=== PATIENT | female | born 1990 | race Caucasian/White ===

== ENCOUNTER 2022-01-05 00:03 | Emergency (ER) | payer OTHER | END 2022-01-05 01:16 | disposition home or self-care (01) | LOC: FER 00:03 | DX: S80.11XA Contusion of right lower leg, initial encounter (principal); F17.200 Nicotine dependence, unspecified, uncomplicated; Z88.0 Allergy status to penicillin | CPT/HCPCS: 99283 ==

== ENCOUNTER 2022-01-22 10:34 | Emergency (ER) | payer OTHER ==
[2022-01-22 11:57] LABS: BASOPHIL 0.9 % (0-2); EOSINOPHIL 0.7 % (0-5); HCT 42.6 % (37.0-47.0); HGB 14.3 g/dl (12.5-16.0); LYMPHOCYTE 31.6 % (15-48); MCH 31.6 pg (25.0-31.0); MCHC 33.6 g/dL (32.0-36.0); MONOCYTE 3.8 % (0-12); MPV 9.2 fL (6.0-9.5); NEUTROPHIL 61.9 % (41-80); NRBC 0; PLT 290 K/uL (150-400); RBC 4.53 M/uL (4.20-5.40); RDW 12.8 % (11.5-14.0)
[2022-01-22 12:27] LABS: ALBUMIN 4.2 g/dL (3.4-5.0); BILIRUBIN - TOTAL 0.4 mg/dL (0.2-1.0); BUN/CREAT RATIO (CALC) 14.3 RATIO; CREATININE 0.7 mg/dL (0.51-0.95); GLOBULIN (CALCULATION) 3.7 g/dL; POTASSIUM 4.1 mmol/L (3.5-5.1); TOTAL PROTEIN 7.9 g/dL (6.4-8.2)
[2022-01-22] MEDS ORDERED: DIFLUCAN 100MG100 MG PO (12:59)
[2022-01-22] MEDS ORDERED: BACTRIM DS TAB1 EACH PO (12:59)
== END 2022-01-22 17:14 | disposition home or self-care (01) ==
LOC: FER 10:34
PROVIDERS: Emergency Medicine
DX: G43.909 Migraine, unspecified, not intractable, without status migrainosus (principal); Z88.0 Allergy status to penicillin; Z28.310 Unvaccinated for COVID-19
CPT/HCPCS: 36415; 70450; 80053; 85025; J1885; J2270; J2405; J7030

== ENCOUNTER 2022-01-26 14:41 | Emergency (ER) | payer OTHER ==
[~2022-01-26 14:41] MED LIST: BACTRIM DS TAB1 EACH PO; DIFLUCAN 100MG100 MG PO
[2022-01-26 18:34] LABS: BASOPHIL 0.6 % (0-2); EOSINOPHIL 1.3 % (0-5); HCT 40.6 % (37.0-47.0); HGB 13.3 g/dl (12.5-16.0); LYMPHOCYTE 34.7 % (15-48); MCHC 32.8 g/dL (32.0-36.0); MCV 94.6 fL (78.0-100.0); MONOCYTE 5.6 % (0-12); MPV 9.6 fL (6.0-9.5); NEUTROPHIL 57.4 % (41-80); NRBC 0; PLT 271 K/uL (150-400); RBC 4.29 M/uL (4.20-5.40); RDW 13.2 % (11.5-14.0); WBC 8.4 K/uL (4.0-10.5)
[2022-01-26 18:45] LABS: BUN/CREAT RATIO (CALC) 15.6 RATIO; CREATININE 0.77 mg/dL (0.51-0.95); POTASSIUM 4.3 mmol/L (3.5-5.1)
[2022-01-26] MEDS ORDERED: CYCLOBENZAPRINE10 MG PO (20:03)
[2022-01-26] MEDS ORDERED: PREDNISONE 20MG20 MG PO (20:03)
== END 2022-01-26 20:27 | disposition home or self-care (01) ==
LOC: FER 14:41
PROVIDERS: Nurse Practitioner Family
DX: M62.838 Other muscle spasm (principal); Z88.0 Allergy status to penicillin; Z28.310 Unvaccinated for COVID-19
CPT/HCPCS: 36415; 80048; 85025; 93005; J1100

== ENCOUNTER 2022-01-29 18:32 | Emergency (ER) | payer OTHER ==
[~2022-01-29 18:32] MED LIST changes: +CYCLOBENZAPRINE10 MG PO; +PREDNISONE 20MG20 MG PO
[2022-01-29 20:34] LABS: BASOPHIL 0.2 % (0-2); EOSINOPHIL 0.2 % (0-5); HCT 40.9 % (37.0-47.0); HGB 13.9 g/dl (12.5-16.0); LYMPHOCYTE 23.3 % (15-48); MCV 94.2 fL (78.0-100.0); MONOCYTE 4.8 % (0-12); MPV 9.3 fL (6.0-9.5); NRBC 0; PLT 271 K/uL (150-400); RBC 4.34 M/uL (4.20-5.40); RDW 12.9 % (11.5-14.0); WBC 12.3 K/uL (4.0-10.5)
[2022-01-29 20:50] LABS: ALBUMIN 3.7 g/dL (3.4-5.0); BILIRUBIN - TOTAL 0.3 mg/dL (0.2-1.0); BUN/CREAT RATIO (CALC) 16.9 RATIO; CREATININE 0.83 mg/dL (0.51-0.95); GLOBULIN (CALCULATION) 3.9 g/dL; POTASSIUM 4.1 mmol/L (3.5-5.1); TOTAL PROTEIN 7.6 g/dL (6.4-8.2)
[2022-01-29 21:24] LABS: BILIRUBIN NEGATIVE (NEGATIVE); BLOOD NEGATIVE Ery/uL (NEGATIVE); CLARITY CLEAR (CLEAR); COLOR YELLOW (YELLOW); GLUCOSE (U) NORMAL (NORMAL); LEUKOCYTES TRACE Leu/uL (NEGATIVE); NITRITE NEGATIVE (NEGATIVE); PROTEIN NEGATIVE (NEGATIVE); SPECIFIC GRAVITY 1.015 (1.001-1.030); UROBILINOGEN 0.2 mg/dL (0.2-1.0)
[2022-01-29 21:30] LABS: BACTERIA TRACE; URINARY RBC RARE; URINARY WBC RARE
[2022-01-29] MEDS ORDERED: ANUCORT-HC25 MG PR (22:31)
== END 2022-01-29 22:50 | disposition home or self-care (01) ==
LOC: FER 18:32
PROVIDERS: Nurse Practitioner Family
DX: K62.5 Hemorrhage of anus and rectum (principal); F17.210 Nicotine dependence, cigarettes, uncomplicated; Z28.310 Unvaccinated for COVID-19
CPT/HCPCS: 36415; 80053; 81001; 85025; J7030; Q9967